=== PATIENT | female | born 1960 ===

== ENCOUNTER → 2021-03-06 | Outpatient (CLI) | payer BC ==
--- NOTE | 2021-03-06 14:30 | KCIC ---
Bilateral digital screening mammograms with 3-D tomosynthesis: Reason for examination: Routine screening. No previous exams available for comparison. New baseline Bilateral mammograms in CC and oblique projections were obtained with 2-D imaging and 3-D tomosynthes is imaging on a Siemens Inspiration unit and reviewed on the workstation. Interpretation was made wit h the benefit of CAD. The skin and nipples show no abnormalities. No abnormal axillary lymph nodes are seen. The breast par enchyma is predominantly fatty. (Breast density: Category A.) There is a small 6 mm nodular parenchym al density present at the 6:30 B position of the right breast 7.5 cm from the nipple. Recommend furth er evaluation with ultrasound. There are no other dominant masses, suspicious calcifications or archi tectural distortion. Benign calcifications are present. Impression: Small 6 mm nodule at the 6:30 B position of the right breast 7.5 cm from the nipple. Recommend furthe r evaluation with ultrasound. BI-RADS Category 0: Incomplete. Needs additional imaging evaluation. "Our facility is accredited by the [employer] Mammography [employer]." This patient's information has been entered into a reminder system for the patient to be notified wit h the results of her examination and a target date for the next mammogram. Electronically signed by: Heather Berumen MD (03/06/2021 2:28 PM) [id number]
== END ==
LOC: KCIC MAMMO 10:30
PROVIDERS: ATTEND Family Medicine
DX: Z12.31 Encounter for screening mammogram for malignant neoplasm of breast (principal); N63.13 Unspecified lump in the right breast, lower outer quadrant
CPT/HCPCS: 77063; 77067

== ENCOUNTER → 2021-03-20 | Outpatient (CLI) | payer BC ==
--- NOTE | 2021-03-20 14:04 | KCIC ---
Procedure: Right breast targeted ultrasound INDICATION: Screening mammogram shows normal except millimeter nodule in the 6:30 position of the rig ht breast at middle depth. COMPARISON: Mammogram from 03/06/2021. There are no older studies of the breasts. The area of concern on mammogram and the right axilla evaluated. No discrete mass is visualized in the 6:30 area of the right breast in the area of concern on mammogr am. No axillary adenopathy is seen. IMPRESSION: No sonographic correlate for the small mass in the 6:30 position right breast at middle d epth is found. The appearance of the small mass on mammogram is likely benign. There are other simila r findings in the right breast. ASSESSMENT: BI-RADS 3. Probably benign finding. Short interval follow-up is recommended. Recommendations: Diagnostic right mammogram in 6 months. Electronically signed by: Ainsley Reeves MD (03/20/2021 2:02 PM) [id number]
== END ==
LOC: KCIC US 12:56
PROVIDERS: ATTEND Family Medicine
DX: R92.2 Inconclusive mammogram (principal)
CPT/HCPCS: 76641